=== PATIENT | female | born 1985 | race Two or more races ===

== ENCOUNTER 2016-08-09 02:58 | Emergency (ER) | payer MEDICAID ==
[~2016-08-09] VITALS: Ht 170.2 cm; Wt 72.6 kg
[2016-08-09 03:39] LABS: Basophils # (auto) 0 uL; Basophils % (auto) 0.2 % (0.0-2.0); Eosinophils # (auto) 0.1 uL; Eosinophils % (auto) 0.6 % (0.0-7.0); Hemoglobin 13.7 g/dL (12.2-16.2); Lymphocytes # (auto) 0.7 uL; Lymphocytes % (auto) 6.5 % (10.0-50.0); Mean Corpuscular Hemoglobin 28.2 pg (28.0-32.0); Mean Corpuscular Hgb Conc. 31.8 g/dL (32.0-36.0); Mean Corpuscular Volume 88.7 fL (80.0-100.0); Monocytes # (auto) 0.1 uL; Monocytes % (auto) 1.1 % (0.0-12.0); Neutrophils # (auto) 9.7 uL; Neutrophils % (auto) 91.6 % (37.0-80.0); Platelet Count (auto) 369 10^3/uL (140-450); Red Cell Distribution Width 12.6 % (11.6-16.0); White Blood Cell 10.6 10^3/uL (4.4-10.8)
[2016-08-09 04:27] LABS: Albumin 3.8 g/dL (3.4-5.0); BUN/Creatinine Ratio 25.5; Bilirubin, Total 2.1 mg/dL (0.2-1.0); Calcium 8.4 mg/dL (8.5-10.1); Magnesium 2.1 mg/dL (1.6-2.6); Potassium 3.9 mmol/L (3.5-5.1); Total Protein 7.4 g/dL (6.4-8.2)
[2016-08-09 05:39] LABS: Urine Bilirubin Negative (Negative); Urine Blood Negative /uL (Negative); Urine Color Yellow (Yellow); Urine Glucose Normal (Normal); Urine Ketone TRACE (Negative); Urine Mucus FEW (None Seen); Urine Nitrite Negative (Negative); Urine RBC 3 /hpf (0 - 4); Urine Squamous Epithelial Cell FEW /hpf (<5); Urine Urobilinogen Normal (Negative); Urine pH 5.5 (5.0-8.0)
[2016-08-09 06:37] VITALS: BP 114/72
[2016-08-09] MEDS ORDERED: HYDROcodone-ACET 10/325MG TAB PO ONE (07:30)
== END 2016-08-09 07:48 | disposition home or self-care (01) ==
LOC: ER 03:02
DX: R10.13 Epigastric pain (principal); K52.9 Noninfective gastroenteritis and colitis, unspecified; N39.0 Urinary tract infection, site not specified; R21 Rash and other nonspecific skin eruption; Z90.49 Acquired absence of other specified parts of digestive tract
CPT/HCPCS: 36415; 74176; 80053; 81001; 82150; 83690; 83735; 85025; 93005; 99285; G0434

== ENCOUNTER 2016-11-23 19:30 | Emergency (ER) | payer MEDICAID ==
[~2016-11-23] VITALS: Ht 167.6 cm; Wt 63.5 kg
[2016-11-23 20:00] VITALS: BP 127/80
[2016-11-23 21:29] LABS: Basophils # (auto) 0.1 uL; Basophils % (auto) 1.3 % (0.0-2.0); Eosinophils # (auto) 0.1 uL; Eosinophils % (auto) 1.5 % (0.0-7.0); Hematocrit 37.7 % (36.0-46.0); Hemoglobin 12.9 g/dL (12.2-16.2); Lymphocytes # (auto) 2.5 uL; Lymphocytes % (auto) 33.4 % (10.0-50.0); Mean Corpuscular Hemoglobin 30.5 pg (28.0-32.0); Mean Corpuscular Hgb Conc. 34.1 g/dL (32.0-36.0); Mean Corpuscular Volume 89.3 fL (80.0-100.0); Mean Platelet Volume 8.2 fL (7.4-10.4); Monocytes # (auto) 0.5 uL; Monocytes % (auto) 7.3 % (0.0-12.0); Neutrophils # (auto) 4.2 uL; Neutrophils % (auto) 56.5 % (37.0-80.0); Platelet Count (auto) 352 10^3/uL (140-450); Red Cell Distribution Width 12.7 % (11.6-16.0); White Blood Cell 7.5 10^3/uL (4.4-10.8)
[2016-11-23 21:56] LABS: Albumin 3.9 g/dL (3.4-5.0); Alkaline Phosphatase 91 U/L (45-117); Anion Gap 6 (5-15); Aspartate Aminotransferase 10 U/L (15-37); Bilirubin, Total 0.6 mg/dL (0.2-1.0); Blood Urea Nitrogen 9 mg/dL (7-18); Calcium 8.6 mg/dL (8.5-10.1); Carbon Dioxide 30 mmol/L (21-32); Chloride 106 mmol/L (98-107); GFR African American 174 mL/min; GFR Non-African American 144 mL/min; Glucose 89 mg/dL (74-106); Magnesium 2.2 mg/dL (1.6-2.6); Potassium 4.1 mmol/L (3.5-5.1); Sodium 142 mmol/L (136-145); Total Protein 7.7 g/dL (6.4-8.2)
== END 2016-11-24 05:00 | disposition left against medical advice (07) ==
LOC: ER 19:39
DX: R07.9 Chest pain, unspecified (principal); R10.13 Epigastric pain; Z53.21 Procedure and treatment not carried out due to patient leaving prior to being seen by health care provider
CPT/HCPCS: 36415; 71020; 80053; 83690; 83735; 84443; 84484; 84702; 85025; 93005

== ENCOUNTER 2017-02-17 13:28 | Emergency (ER) | payer MEDICAID ==
[~2017-02-17] VITALS: Ht 170.2 cm; Wt 61.9 kg
[2017-02-17 16:08] VITALS: BP 124/91
[2017-02-17] MEDS ORDERED: KETOROLAC TROMETH 60MG/2ML VIAL IM ONE (17:45)
== END 2017-02-17 18:32 | disposition home or self-care (01) ==
LOC: ER 13:30
DX: R51 Headache (principal); M54.5 Low back pain; Z90.49 Acquired absence of other specified parts of digestive tract
CPT/HCPCS: 70450; 96372; 99284; J1885